=== PATIENT | male | born 1975 | race Caucasian/White ===

== ENCOUNTER 2021-02-26 16:29 | Inpatient (IN) | payer SELFPAY ==
[2021-02-26] MEDS ORDERED: cefTRIAXone\\ROCEPHIN 2 GM VIAL ONE (17:29)
[2021-02-26] MEDS ORDERED: Ibuprofen 200 MG TAB ONE (17:29)
[2021-02-26] MEDS ORDERED: Acetaminophen 500 MG TAB ONE (17:29)
[2021-02-26 17:36] LABS: #Lymphocytes 0.9 thou/uL (1.20-3.40); #Monocytes 0.4 thou/uL (0.11-0.59); #Neutrophils 4.2 thou/uL (1.40-6.50); %Basophils 0.4 % (0.0-1.0); %Eosinophils 0.6 % (0.0-10.0); %Lymphocytes 16.3 % (21.0-51.0); %Monocytes 6.6 % (0.0-10.0); %Neutrophils 76.2 % (42.0-75.0); Hemoglobin 15.4 g/dL (14.0-18.0); Mean Corpuscular HGB CONC 32.4 g/dL (32.0-36.0); Mean Corpuscular Hemoglobin 26.9 pg (27.0-31.0); Mean Corpuscular Volume 83.1 fL (78.0-98.0); Mean Platelet Volume 7.1 fL (7.4-10.4); Platelet Count 192 thou/uL (130-400); Red Blood Cell (RBC) Count 5.73 mill/uL (4.70-6.10); White Blood Cell (WBC) Count 5.5 thou/uL (4.8-10.8)
[2021-02-26 17:57] LABS: ALT (SGPT) 35 U/L (8-55); AST (SGOT) 29 U/L (5-34); Albumin 3.8 g/dL (3.5-5.0); Alkaline Phosphatase 95 U/L (40-110); Anion Gap 13 mmol/L (10-20); BUN (Urea Nitrogen) 10 mg/dL (8.9-20.6); Bilirubin, Total 0.3 mg/dL (0.2-1.2); Calc. Creatinine Clearance 0 mL/min (70-130); Calcium 8.8 mg/dL (7.8-10.44); Carbon Dioxide 29 mmol/L (22-29); Chloride 98 mmol/L (98-107); Globulin 3.5 g/dL (2.4-3.5); Glucose 93 mg/dL (70-105); Potassium 3.6 mmol/L (3.5-5.1); Protein, Total 7.3 g/dL (6.0-8.3); Sodium 136 mmol/L (136-145)
[2021-02-26] MEDS ORDERED: Azithromycin 500 MG VIAL ONE (18:20)
[2021-02-26] MEDS ORDERED: Lisinopril 10 MG TAB ONE (19:22)
[2021-02-26 19:58] LABS: Bilirubin Negative (Negative); Blood, Urine Negative (Negative); Clarity Clear (Clear); Glucose, Urine (Dipstick) Normal (Negative); Ketone, Urine Negative (Negative); Leukocyte Negative Leu/uL (Negative); Nitrite Negative (Negative); Protein, Urine (Dipstick) 10 mg/dL (Neg-Trace); Specific Gravity, Urine 1.022 (1.002-1.036); Urobilinogen Normal mg/dL (Less than 2); pH, Urine 6.5 (5.0-9.0)
[2021-02-26 21:39] LABS: SARS-CoV-2 NAA Rapid Test DETECTED (NotDetected)
[2021-02-26 22:45] LABS: Troponin I 0.015 ng/mL (< 0.028)
[2021-02-26] MEDS ORDERED: HYDROcodone/Acetaminophen 5/325 mg Tablet PO PRN (23:06)
[2021-02-26] MEDS ORDERED: Acetaminophen 325 MG TAB PO PRN (23:06)
[2021-02-26] MEDS ORDERED: Cholecalciferol (Vitamin D3) 400 UNITS TAB PO SCH (23:45)
[2021-02-26] MEDS ORDERED: Ascorbic Acid 500 mg Chewable Tablet PO SCH (23:45)
[2021-02-26] MEDS ORDERED: Zinc Sulfate 220 MG CAP PO SCH (23:45)
[2021-02-27 00:18] LABS: Troponin I Less than 0.010 ng/mL (< 0.028)
[2021-02-27 01:44] VITALS: BMI 41.3
[2021-02-27] MEDS ORDERED: Ondansetron PF 4 MG/2 ML Vial IVP PRN (01:45)
[2021-02-27] MEDS ORDERED: Ondansetron ODT 4 MG TAB SL PRN (01:45)
[2021-02-27 05:27] LABS: #Eosinphils 0.1 thou/uL (0.0-0.7); #Lymphocytes 0.7 thou/uL (1.20-3.40); #Monocytes 0.2 thou/uL (0.11-0.59); %Lymphocytes 13.9 % (21.0-51.0); %Monocytes 4.4 % (0.0-10.0); %Neutrophils 79.7 % (42.0-75.0); Hemoglobin 15.5 g/dL (14.0-18.0); Mean Corpuscular HGB CONC 32.7 g/dL (32.0-36.0); Mean Corpuscular Hemoglobin 27.3 pg (27.0-31.0); Mean Corpuscular Volume 83.4 fL (78.0-98.0); Mean Platelet Volume 7.5 fL (7.4-10.4); Platelet Count 169 thou/uL (130-400); RBC Distribution Width 13.3 % (11.5-14.5); Red Blood Cell (RBC) Count 5.68 mill/uL (4.70-6.10)
[2021-02-27 05:45] LABS: Anion Gap 12 mmol/L (10-20); BUN (Urea Nitrogen) 10 mg/dL (8.9-20.6); Calc. Creatinine Clearance 148 mL/min (70-130); Calcium 8.4 mg/dL (7.8-10.44); Carbon Dioxide 29 mmol/L (22-29); Chloride 101 mmol/L (98-107); Glucose 134 mg/dL (70-105); Potassium 4.2 mmol/L (3.5-5.1); Sodium 138 mmol/L (136-145)
[2021-02-27 07:43] VITALS: TEMP 100
[2021-02-27 07:45] VITALS: BP 194/96
[2021-02-27] MEDS ORDERED: Zinc Sulfate 220 MG CAP PO SCH (09:00)
[2021-02-27] MEDS ORDERED: Ascorbic Acid 500 mg Chewable Tablet PO SCH (09:00)
[2021-02-27] MEDS ORDERED: Cholecalciferol (Vitamin D3) 400 UNITS TAB PO SCH (09:00)
[2021-02-27] MEDS ORDERED: Dexamethasone 4 mg/ml Vial SLOW IVP SCH (09:00)
[2021-02-27] MEDS ORDERED: Lisinopril 10 MG TAB PO SCH (10:00)
[2021-02-28] MEDS ORDERED: Lisinopril 10 MG TAB PO SCH ×2 (09:00)
== END 2021-02-27 10:54 | disposition home or self-care (01) | DRG 871 ==
LOC: ERS 16:29 → 2SW 20:30
PROVIDERS: ADMIT Student in an Organized Health Care Education/Training Program; ATTEND Hospitalist
PROC: 8E0ZXY6 Isolation (ICD-10-PCS; principal; 2021-02-26)
DX: A41.89 Other specified sepsis (principal); U07.1 COVID-19; I10 Essential (primary) hypertension
CPT/HCPCS: 0240U; 36415; 71045; 80048; 80053; 81003; 82728; 83605; 83880; 84484; 85025; 85379; 86140; 87040; 87086; 93005; 96365; 96367; J0456; J0696; J1100